=== PATIENT | male | born 1965 | race Asian ===

== ENCOUNTER 2021-05-22 11:47 | Emergency (ER) | payer OTHER ==
[~2021-05-22] VITALS: Ht 160 cm; Wt 63.6 kg
[2021-05-22 12:30] VITALS: BP 135/98
== END 2021-05-22 21:38 | disposition left against medical advice (07) ==
LOC: ER 11:49
DX: H57.11 Ocular pain, right eye (principal); Z53.21 Procedure and treatment not carried out due to patient leaving prior to being seen by health care provider